=== PATIENT | male | born 1995 | race Caucasian/White ===

== ENCOUNTER 2017-09-29 14:41 | Outpatient (RCR) | payer OTHER, SELFPAY ==
--- NOTE | 2017-09-29 16:25 | HP.PTEVAL_ITS ---
Patient's Visit Information VALERIA TSE is a 22 year old M referred to Physical Therapy by Ramesh Martinez MD with a diagnosis of Strain of lumbar region. Date of Evaluation: 09/29/17 Physical Therapist: Osiel Mathews PT, - Visit Plan Frequency: 2x /Week Duration: 4 Weeks Plan: Start with REIL with pt OP. Progress to strengthening interventions when tolerated. Lumbar mobilizations prn. Modalities prn. Pt with myotomal weakness on exam. 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 - Subjective Subjective: Pt is 22 y/o male referred for low back stain. He reports that last 09/20/17, he picked up a 70# box and experienced R sided LBP. He currently reports symptoms mainly in the L side of his low back and buttocks that radiates down the posterior R LE down to the ankle. He has tried different stretches that include press ups, forward bending stretches, and straight leg raises in supine. Denies surgical or injection history for low back. 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 Reports n/t in R foot and mild weakness also in his foot. Denies b/b incontinence and recent falls/trauma. Aggrevating factors: sitting, bending, lifting. Easing factors: standing, walking, and press ups. OCCUPATION: [employer], fitness sales consultant, physical job - Pain low back Pain Intensity (Out of 10): 6 Pain Intensity Range: 4, 8 L radicular Pain Intensity (Out of 10): 6 Pain Intensity Range: 4, 8 - Objective OBSERVATION: flexed forward posture, slight R lateral deviation. PALPATION: GAIT: Antalgic L LE, lateral trunk lean with L LE stance. NEURO: Dermatome intact; Myotome L4 and 5 impaired on L LE otherwise normal, DTRs absent R L3, L L3/S1 2+, R S1 2+. ROM: Lumbar flexion* 25%, Extension 100%, R LF 100%, L LF* 50%. ASSESSORY: Painful and hypomobile L5 PAIVM, normal L1-4. FLEXIBILITY: Hamstrings tight. MMT: quads/hams 4-5/ ,DF left 4-/5 ,great toe extensors 3/5. SYMMTRIES: align - Special Tests L/S Slump test left side: Positive L/S Slump test right side: Decreased HS flexibility L/S Left Straight Leg Raise: Positive L/S Right Straight Leg Raise: Negative Lumbar Standing: Flexion - Mechanical Response: No effect Lumbar Standing: Flexion - Symptoms During Testing: Increases Lumbar Standing: Flexion - Symptoms After Testing: Worse Lumbar Standing: Extension - Mechanical Response: Increases motion Lumbar Standing: Extension - Symptoms During Testing: Decreases Lumbar Standing: Extension - Symptoms After Testing: Better Lumbar Lying: Extension - Mechanical Response: Increases motion Lumbar Lying: Extension - Symptoms During Testing: Centralizing Lumbar Lying: Extension - Symptoms After Testing: Better - Goals Goal 1:: Pt will demonstrate at least 75% in all planes to improve tolerance with self care activites. Goal Time Frame: 4-6 Weeks Goal 2:: Pt will demonstrate correct sitting posture without cues to improve tolerance with sitting at work. Goal Time Frame: 4-6 Weeks Goal 3:: Pt will demonstrate crate lift of 25# with correct body mechanics to allow pt to return to work duties and avoid future re-injury. Goal Time Frame: 4-6 Weeks Goal 4:: Pt will be independent with HEP to sustain gains made in the clinic. Goal Time Frame: 4-6 Weeks Goal 5:: Pt will improve lumbar DAVID by at least 5 points to improve function and QOL. Goal Time Frame: 4-6 Weeks - Rehabilitation Potential Physical Therapy Diagnosis: Pt is a 22 y/o male referred for strain of lumbar region. He has DERIC of lifting a heavy box with poor body mechanics a week ago. He appears to respond well to REIL with reduction of radicular symptoms. He exhibits L4,5 myotomal weakness on exam. He has activity limitations that include decreased sitting tolerance, poor lifting tolerance, and affected sleep. This affects his participation with work tasks and recreational activities. Pt's prognosis for an ideal outcome is good and is limited with the extend of myotomal weakness, history of back issues, and history of smoking. Pt will benefit from skilled therapy to address the documented objective impairments. Rehabilitation Potential: Good - Anticipated Interventions Patient/Client Instruction: Educate patient on: Condition, Plan of Care For the Purpose of:: To decrease pain, To increase ROM, To improve muscle performance and motor function, To increase tolerance to activity/condition/ position, To improve ability of physical actions for home/community/work/leisure , To improve gait and locomotor functions, To improve health of tissue, To decrease soft tissue restriction, To increase flexibility/ROM, To reduce risk of recurrence, To improve self management, To prevent re-injury Therapeutic Exercise to Include: Strength training, Endurance training For the Purpose of:: To decrease pain, To increase ROM, To improve muscle performance and motor function, To increase tolerance to activity/condition/ position, To improve ability of physical actions for home/community/work/leisure , To improve gait and locomotor functions, To improve health of tissue, To decrease soft tissue restriction, To increase flexibility/ROM, To reduce risk of recurrence, To improve self management, To prevent re-injury Manual Therapy Techniques to Include: Mobilization, Soft tissue mobilization For the Purpose of:: To decrease pain, To increase ROM, To improve muscle performance and motor function, To increase tolerance to activity/condition/ position, To improve ability of physical actions for home/community/work/leisure , To improve gait and locomotor functions, To improve health of tissue, To decrease soft tissue restriction, To increase flexibility/ROM TENS: Yes IF ES: Yes Other electric stimulation: Yes Cryotherapy (ice pack, ice massage): Yes Thermo therapy (hot pack): Yes Ultrasound (thermal/non thermal): Yes For the Purpose of:: To decrease pain, To increase ROM, To improve muscle performance and motor function, To improve performance and independence with ADL 's, To improve ability of physical actions for home/community/work/leisure Thank you for the opportunity to evaluate your patient. For Medicare and Medicare HMO plans, please review the plan of care and approve it. It will need to be FAXED BACK to us at [phone] for Medicare purposes. Please let me know if there are questions or concerns regarding this plan of care. Physician Signature: Date:
--- NOTE | 2018-02-07 15:11 | HP.PTDCNRP_ITS ---
HP - Discharge Summary (1) - Patient Information VALERIA Kd TSE was seen in my office for initial evaluation on 09/29/17. The following Plan of Care was established for this patient: Initial Frequency: 2x /Week Initial Duration: 4 Weeks - Anticipated Interventions Patient/Client Instruction: Educate patient on: Condition, Plan of Care For the Purpose of:: To decrease pain, To increase ROM, To improve muscle performance and motor function, To increase tolerance to activity/condition/position, To improve ability of physical actions for home/community/work/leisure, To improve gait and locomotor functions, To improve health of tissue, To decrease soft tissue restriction, To increase flexibility/ROM, To reduce risk of recurrence, To improve self management, To prevent re-injury Therapeutic Exercise to Include: Strength training, Endurance training For the Purpose of:: To decrease pain, To increase ROM, To improve muscle performance and motor function, To increase tolerance to activity/condition/position, To improve ability of physical actions for home/community/work/leisure, To improve gait and locomotor functions, To improve health of tissue, To decrease soft tissue restriction, To increase flexibility/ROM, To reduce risk of recurrence, To improve self management, To prevent re-injury Manual Therapy Techniques to Include: Mobilization, Soft tissue mobilization For the Purpose of:: To decrease pain, To increase ROM, To improve muscle performance and motor function, To increase tolerance to activity/ condition/position, To improve ability of physical actions for home/community/work/leisure, To improve gait and locomotor functions, To improve health of tissue, To decrease soft tissue restriction, To increase flexibility/ROM TENS: Yes IF ES: Yes Other electric stimulation: Yes Cryotherapy (ice pack, ice massage): Yes Thermo therapy (hot pack): Yes Ultrasound (thermal/non thermal): Yes For the Purpose of:: To decrease pain, To increase ROM, To improve muscle performance and motor function, To improve performance and independence with ADL's, To improve ability of physical actions for home/community/work/leisure This patient was last seen in our office . Pertinent comments regarding their Physical therapy will appear below: Patient seen for PT Intial Evaluation for HEP. At this point I will be discontinuing this patient from physical therapy. I would be happy to see this patient again in the future if found appropriate by the physician. Thank you! Osiel Mathews, PT,
== END 2017-09-29 19:00 | disposition home or self-care (01) ==
LOC: PT 14:41
PROVIDERS: Family Provider Family Medicine; PCP Family Medicine; Visit Provider Family Medicine
DX: S39.012D Strain of muscle, fascia and tendon of lower back, subsequent encounter (principal)
CPT/HCPCS: 97110; 97162